=== PATIENT | male | born 1990 | race Hispanic/Latino ===

== ENCOUNTER 2016-10-28 06:09 | Inpatient (IN) | payer BC ==
[2016-10-28 06:15] VITALS: O2SAT 95
--- NOTE | 2016-10-28 06:15 | ED PDOC ---
Psych Transfer Clearance - Clearance Statement Clearance Statement: Reviewed vital signs, lab results and transfer papers. Patient clinically stable for psychiatric admission.
[2016-10-28] MEDS ORDERED: Magnesium Hydroxide Susp 30 ml UD PO PRN (07:07)
[2016-10-28] MEDS ORDERED: Alum-Mag Hydrox-Simethicone Susp (30 mL) PO PRN (07:07)
[2016-10-28] MEDS ORDERED: DiphenhydrAMINE 50 mg/ml Inj IM PRN (07:07)
[2016-10-28 09:49] LABS: T4 5.45 ug/dl (5.5-11.0)
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
[2016-10-28] MEDS ORDERED: CARBAMAZEPINE 200 MG PO SCH (17:00)
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
[2016-10-29] MEDS ORDERED: carBAMazepine Chew Tab 100 MG Chew Tab PO SCH (21:00)
--- NOTE | 2016-10-30 14:00 | PCM.PYCHPN ---
Psychiatric Progress Note - Psychiatric Progress Note Patient seen today, length of contact: in treatment team Patient Chief Complaint: i guess make my meds better Problems Identified/Issues Discussed: pt internally preoccupied. states he has ocd. states he has tics sometimes. noted that pt left treatment team and came back to straighten chair. he will not reveal the content of his intrusive thoughts, but hints that they are very distressing and he's too embarrassed to talk about them. he cannot name any goals with exception of "get meds right" he cannot name his meds or why he takes them. he is allowing team to contact family who he sates may have more information. he is taking medications as prescribed. stays to self and [facility] at time. Medication Change: Yes ( dc lamictal) Medical Record Reviewed: Yes Mental Status Examination - Cognitive Function Orientation: Person, Place, Situation, Time Memory: Intact Attention: WNL Concentration: WNL Association: Loose Fund of Knowledge: WNL Decription of patient's judgement and insights: superficial insight - Mood Mood: Depressed, Anxious - Affect Affect: Blunted, Flat - Speech Speech: Soft (brief evasive answers; does not provided information spontaneously ) - Formal Thought Process Formal Thought Process: Delusions, Paranoia, Other (internally preoccupied, history of poor impulse control) - Suicidal Ideation Suicidal Ideation: Yes Plan: denies plan or intent- states he had thoughts to stab self in neck a few time- "i guess i would have " - Homicidal Ideation Homicidal Ideation: No Goal/Treatment Plan - Goal/Treatment Plan Need for Continued Stay: Remain at risks for inpatient hospitalization, Severe functional impairment Progress Toward Problem(s) and Goals/Treatment Plan: schizoaffective disorder r/o autistic spectrum/aspergers pt needs further stabilization have restarted medications will dc lamictal as it is not optimal with tegretol will try to work with [facility] providers /family to adjust medications will keep on 1:1 as pt is with history of poor impulse control/aggression and threats towards providers as well as recent threats to self pt appears to have ocd/autism spectrum type symptoms along with history of motor tics- this combination of symptoms can be very difficult to manage with medications and pts often have sensitivities to medications. ocd symptoms should be evaluated by a specialist and treated with CBT manualized treatment as an outpt he is minimally participating in his treatment and is regresses in terms of his ability to understand treatment and care for self Estimated Date of D/C: 11/05/16
--- NOTE | 2016-10-31 11:59 | PCM.PYCHPN ---
Psychiatric Progress Note - Psychiatric Progress Note Patient seen today, length of contact: discussed with team Patient Chief Complaint: i just want a girlfriend Problems Identified/Issues Discussed: pt remains internally preoccupied. pacing, talking to self and gestures to self. most recent meds were tegretol 300bid, haldol 2mg bid, anafranil 100mg hs and zoloft 100am. apparently these medications were started at [facility] and not effective. pt's father states ocd symptoms are most concerning. pt without aggression or agitation here. he did not sleep well last night per staff report. pt just shrugs when asked about this. Medication Change: No ( t/c increase tegretol- will check level) Medical Record Reviewed: Yes Mental Status Examination - Cognitive Function Orientation: Person, Place, Situation, Time Memory: Intact Attention: WNL Concentration: WNL Association: Loose Fund of Knowledge: WNL Decription of patient's judgement and insights: superficial insight - Mood Mood: Depressed, Anxious - Affect Affect: Blunted, Flat - Speech Speech: Soft (brief evasive answers; does not provided information spontaneously ) - Formal Thought Process Formal Thought Process: Delusions, Paranoia, Other (internally preoccupied, history of poor impulse control) - Suicidal Ideation Suicidal Ideation: Yes Plan: passive thoughts - Homicidal Ideation Homicidal Ideation: No Goal/Treatment Plan - Goal/Treatment Plan Need for Continued Stay: Remain at risks for inpatient hospitalization, Severe functional impairment Progress Toward Problem(s) and Goals/Treatment Plan: schizoaffective disorder r/o autistic spectrum/aspergers pt needs further stabilization have restarted medications will try to work with [facility] providers /family to adjust medications- current meds seem to be at least partially effective check tegretol level will keep on 1:1 as pt is with history of poor impulse control/aggression and threats towards providers as well as recent threats to self pt appears to have ocd/autism spectrum type symptoms along with history of motor tics- this combination of symptoms can be very difficult to manage with medications and pts often have sensitivities to medications. ocd symptoms should be evaluated by a specialist and treated with CBT manualized treatment as an outpt he is minimally participating in his treatment and is regresses in terms of his ability to understand treatment and care for self Estimated Date of D/C: 11/05/16
--- NOTE | 2016-11-01 12:32 | PCM.PYCHPN ---
Psychiatric Progress Note - Psychiatric Progress Note Patient seen today, length of contact: discussed with team Patient Chief Complaint: i just want a girlfriend Problems Identified/Issues Discussed: pt more social with peers, but perseverates on wanting a girlfriend. he is reporting poor sleep. no other complaints. still with intrusive thoughts. Diagnostic Results: tegerelol level is 4.1 Medication Change: No ( t/c increase tegretol- will check level) Medical Record Reviewed: Yes Mental Status Examination - Cognitive Function Orientation: Person, Place, Situation, Time Memory: Intact Attention: WNL Concentration: WNL Association: Loose Fund of Knowledge: WNL Decription of patient's judgement and insights: superficial insight - Mood Mood: Depressed, Anxious - Affect Affect: Blunted, Flat - Speech Speech: Soft (brief evasive answers; does not provided information spontaneously ) - Formal Thought Process Formal Thought Process: Delusions, Paranoia, Other (internally preoccupied, history of poor impulse control) - Suicidal Ideation Suicidal Ideation: No Plan: denies - Homicidal Ideation Homicidal Ideation: No Goal/Treatment Plan - Goal/Treatment Plan Need for Continued Stay: Remain at risks for inpatient hospitalization, Severe functional impairment Progress Toward Problem(s) and Goals/Treatment Plan: schizoaffective disorder r/o autistic spectrum/aspergers pt needs further stabilization have restarted medications will add seroquel hs for sleep increase tegretol will keep on 1:1 as pt is with history of poor impulse control/aggression and threats towards providers as well as recent threats to self pt appears to have ocd/autism spectrum type symptoms along with history of motor tics- this combination of symptoms can be very difficult to manage with medications and pts often have sensitivities to medications. ocd symptoms should be evaluated by a specialist and treated with CBT manualized treatment as an outpt improvement in his participation in treatment Estimated Date of D/C: 11/05/16
--- NOTE | 2016-11-01 18:27 | CARD ---
APPROVED REPORT EKG Measurement Heart [id number] <Conclusion> Sinus tachycardia Minimal voltage criteria for LVH, may be normal variant Borderline ECG
[2016-11-01] MEDS: carBAMazepine Chew Tab 100 MG Chew Tab PO SCH (21:16)
[2016-11-02] MEDS: carBAMazepine Chew Tab 100 MG Chew Tab PO SCH ×2 (08:50→21:04)
--- NOTE | 2016-11-02 10:35 | PCM.PYCHPN ---
Psychiatric Progress Note - Psychiatric Progress Note Patient seen today, length of contact: discussed with team Patient Chief Complaint: i have bad ocd Problems Identified/Issues Discussed: pt pacing. states he feels restless and bored. pt mumbling to self and states he does not want to share his intrusive thoughts. he states he needs to go to a hospital that specializes in ocd. he reports he did not sleep last night. continues to talk about how he needs to have a girlfriend. Diagnostic Results: tegerelol level is 4.1 Medication Change: Yes (increase seroquel) Medical Record Reviewed: Yes Mental Status Examination - Cognitive Function Orientation: Person, Place, Situation, Time Memory: Intact Attention: WNL Concentration: WNL Association: Loose Fund of Knowledge: WNL Decription of patient's judgement and insights: superficial insight - Mood Mood: Depressed, Anxious - Affect Affect: Blunted, Flat - Speech Speech: Soft (brief evasive answers; does not provided information spontaneously ) - Formal Thought Process Formal Thought Process: Delusions, Paranoia, Other (internally preoccupied, history of poor impulse control) - Suicidal Ideation Suicidal Ideation: No - Homicidal Ideation Homicidal Ideation: No Goal/Treatment Plan - Goal/Treatment Plan Need for Continued Stay: Remain at risks for inpatient hospitalization, Severe functional impairment Progress Toward Problem(s) and Goals/Treatment Plan: schizoaffective disorder r/o autistic spectrum/aspergers pt needs further stabilization have restarted medications will increase seroquel hs for sleep have increased tegretol will keep on 1:1 as pt is with history of poor impulse control/aggression and threats towards providers as well as recent threats to self pt appears to have ocd/autism spectrum type symptoms along with history of motor tics- this combination of symptoms can be very difficult to manage with medications and pts often have sensitivities to medications. ocd symptoms should be evaluated by a specialist and treated with CBT manualized treatment as an outpt improvement in his participation in treatment Estimated Date of D/C: 11/05/16
[2016-11-03] MEDS: carBAMazepine Chew Tab 100 MG Chew Tab PO SCH ×2 (10:59→21:09)
--- NOTE | 2016-11-03 12:00 | PCM.PYCHPN ---
Psychiatric Progress Note - Psychiatric Progress Note Patient seen today, length of contact: discussed with team Patient Chief Complaint: i slept Problems Identified/Issues Discussed: pt not pacing as much today. states he feel less restless. no aggression. not actively engaging in compulsions today when seen. denies medication side effects. Diagnostic Results: tegerelol level is 4.1 Medication Change: No ( ) Medical Record Reviewed: Yes Mental Status Examination - Cognitive Function Orientation: Person, Place, Situation, Time Memory: Intact Attention: WNL Concentration: WNL Association: Loose Fund of Knowledge: WNL Decription of patient's judgement and insights: superficial insight - Mood Mood: Depressed, Anxious - Affect Affect: Blunted, Flat - Speech Speech: Soft (brief evasive answers; does not provided information spontaneously ) - Formal Thought Process Formal Thought Process: Delusions, Paranoia, Other (internally preoccupied, history of poor impulse control) - Suicidal Ideation Suicidal Ideation: No - Homicidal Ideation Homicidal Ideation: No Goal/Treatment Plan - Goal/Treatment Plan Need for Continued Stay: Remain at risks for inpatient hospitalization, Severe functional impairment Progress Toward Problem(s) and Goals/Treatment Plan: schizoaffective disorder r/o autistic spectrum/aspergers pt needs further stabilization have restarted medications will continue seroquel hs for sleep have increased tegretol will keep on 1:1 as pt is with history of poor impulse control/aggression and threats towards providers as well as recent threats to self- will attempt to discontinue during day shift tomorrow pt appears to have ocd/autism spectrum type symptoms along with history of motor tics- this combination of symptoms can be very difficult to manage with medications and pts often have sensitivities to medications. ocd symptoms should be evaluated by a specialist and treated with CBT manualized treatment as an outpt improvement in his participation in treatment Estimated Date of D/C: 11/05/16
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
[2016-11-04 08:09] LABS: BLOOD UREA NITROGEN 19 mg/dl (9-20); CALCIUM 9.5 mg/dL (8.4-10.2); GFR AFRICAN-AMERICAN > 60; GFR NON-AFRICAN AMERICAN > 60
[2016-11-04] MEDS: carBAMazepine Chew Tab 100 MG Chew Tab PO SCH ×2 (09:56→21:11)
--- NOTE | 2016-11-04 12:21 | PCM.PYCHPN ---
Psychiatric Progress Note - Psychiatric Progress Note Patient seen today, length of contact: discussed with team Patient Chief Complaint: hi, how are you? Problems Identified/Issues Discussed: pt attending groups today. anticipating discharge tomorrow. feels sleep is improved with seroquel. pt aware of his f/u with neuropsych testing after his discharge. continues to be internally preoccupied, mumbles to self. guarded. Diagnostic Results: tegerelol level is 4.1 Medication Change: No ( ) Medical Record Reviewed: Yes Mental Status Examination - Cognitive Function Orientation: Person, Place, Situation, Time Memory: Intact Attention: WNL Concentration: WNL Association: Loose Fund of Knowledge: WNL Decription of patient's judgement and insights: superficial insight - Mood Mood: Depressed, Anxious - Affect Affect: Blunted, Flat - Speech Speech: Soft (brief evasive answers; does not provided information spontaneously ) - Formal Thought Process Formal Thought Process: Delusions, Paranoia Psychotic Thoughts and Behaviors: remains internally preoccupied - Suicidal Ideation Suicidal Ideation: No - Homicidal Ideation Homicidal Ideation: No Goal/Treatment Plan - Goal/Treatment Plan Need for Continued Stay: Remain at risks for inpatient hospitalization, Severe functional impairment Progress Toward Problem(s) and Goals/Treatment Plan: schizoaffective disorder r/o autistic spectrum/aspergers will continue seroquel hs for sleep continue tegretol and thorazine- could potentially replace thorazine with seroquel as an outpt if pt stays in treatment dc 1:1 today and observe- if pt remains in behavioral control, will discharge home will f/u with [facility] has outpt neuropsych testing scheduled. Estimated Date of D/C: 11/05/16
[2016-11-04 20:07] VITALS: RESP 18
[2016-11-05] MEDS: carBAMazepine Chew Tab 100 MG Chew Tab PO SCH (09:50)
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
[2016-11-05 16:13] VITALS: BP 134/69; PULSE 92; TEMP 97.9
== END 2016-11-05 15:00 | disposition home or self-care (01) | DRG 885 ==
LOC: H.ER 06:09 → H.PSYCH 06:14
PROVIDERS: ADMIT Psychiatry & Neurology Psychiatry; ATTEND Psychiatry & Neurology Psychiatry
DX: F25.9 Schizoaffective disorder, unspecified (principal); F42.9 Obsessive-compulsive disorder, unspecified; E78.5 Hyperlipidemia, unspecified; E78.00 Pure hypercholesterolemia, unspecified; E66.9 Obesity, unspecified; Z68.35 Body mass index [BMI] 35.0-35.9, adult